=== PATIENT | female | born 1980 | race Caucasian/White ===

== ENCOUNTER 2017-05-24 07:43 | Emergency (ER) | payer SELFPAY, OTHER ==
[2017-05-24] MEDS: LORAZEPAM 2 MG INJ IM (09:09)
[2017-05-24] MEDS: KETOROLAC 60 MG INJ IM (09:10)
== END 2017-05-24 10:22 | disposition home or self-care (01) ==
LOC: FTE 10:22
DX: F41.9 Anxiety disorder, unspecified (principal); N60.02 Solitary cyst of left breast; N60.01 Solitary cyst of right breast; F17.210 Nicotine dependence, cigarettes, uncomplicated; Z85.41 Personal history of malignant neoplasm of cervix uteri
CPT/HCPCS: 81025; 96372; 99284-25

== ENCOUNTER 2017-05-30 13:32 | Emergency (ER) | payer SELFPAY | END 2017-05-30 14:19 | disposition left against medical advice (07) | LOC: E/R 14:19 | DX: Z53.21 Procedure and treatment not carried out due to patient leaving prior to being seen by health care provider (principal) ==